=== PATIENT | female | born 1950 | race Caucasian/White ===

== ENCOUNTER 2022-12-20 07:16 | Day surgery (SDC) | payer OTHER ==
[2022-12-20] MEDS: Lactated Ringers 1,000 ML IV SCH (07:34)
[2022-12-20] MEDS ORDERED: fentaNYL 100 MCG/2 ML SDV ONE (09:17)
[2022-12-20] MEDS ORDERED: Propofol 200 MG/20 ML SDV ONE (09:17)
[2022-12-20] MEDS ORDERED: Ondansetron 4 MG/2 ML SDV ONE (09:37)
== END 2022-12-20 10:53 | disposition home or self-care (01) ==
LOC: MERGE 07:16 → VM.SDS 07:16
PROVIDERS: ATTEND Family Medicine
DX: Z12.11 Encounter for screening for malignant neoplasm of colon (principal); D12.2 Benign neoplasm of ascending colon; D12.3 Benign neoplasm of transverse colon; E78.00 Pure hypercholesterolemia, unspecified; M81.0 Age-related osteoporosis without current pathological fracture; I12.9 Hypertensive chronic kidney disease with stage 1 through stage 4 chronic kidney disease, or unspecified chronic kidney disease; I77.6 Arteritis, unspecified; N18.30 Chronic kidney disease, stage 3 unspecified; D63.1 Anemia in chronic kidney disease; H61.23 Impacted cerumen, bilateral; M31.31 Wegener's granulomatosis with renal involvement; E66.01 Morbid (severe) obesity due to excess calories; Z80.0 Family history of malignant neoplasm of digestive organs; Z79.52 Long term (current) use of systemic steroids; Z79.899 Other long term (current) drug therapy; Z68.41 Body mass index [BMI] 40.0-44.9, adult
CPT/HCPCS: 00812; J2405; J2704; J3010; J7120